=== PATIENT | female | born 1990 | race Native Hawaiian/Other Pacific Islander ===

== ENCOUNTER 2020-07-15 07:04 | Emergency (ER) | payer OTHER ==
--- NOTE | 2020-07-15 07:53 | Emergency Department Report ---
ED General Adult HPI - General Chief complaint: Neck Pain/Injury Stated complaint: THYROID PROBLEM Time Seen by Provider: 07/15/20 07:45 Source: patient Mode of arrival: Ambulatory Limitations: No Limitations - History of Present Illness Initial comments: This is a 29-year-old female she presents to the emergency room complaining of neck pain x2 weeks. She denies any falls or injuries she also complaining of her heart racing. Patient has a history of thyroid goiter x2 years on the right side. She also reports seeing POLYETHYLENE BAG MACHINE OPERATOR yesterday and it was confirmed that she is 4 weeks . She is 2 para 1. She denies any other past medical h istory she is currently not taking any meds. She denies cough fever chills chest pain or shortness of breath. She patient appears to be in no acute distress -: week(s) (2) Location: neck Severity scale (0 -10): 4 Quality: aching Consistency: constant Improves with: none Worsens with: none Associated Symptoms: other (Feeling anxious). denies: confusion, chest pain, loss of appetite, malaise, shortness of breath, syncope Treatments Prior to Arrival: none - Related Data Home Medications Medication Instructions Recorded Confirmed Last Taken No Known Home Medications [No 07/15/20 07/15/20 Unknown Reported Home Medications] Allergies Allergy/AdvReac Type Severity Reaction Status Date / Time No Known Allergies Allergy Unverified 07/15/20 07:35 ED Review of Systems ROS: Stated complaint: THYROID PROBLEM Other details as noted in HPI Comment: All other systems reviewed and negative Constitutional: denies: chills, fever, malaise ENT: denies: ear pain, throat pain, dental pain, hearing loss Respiratory: denies: cough, shortness of breath, SOB with exertion, wheezing Cardiovascular: other (Feels like her heart is racing). denies: chest pain, palpitations Endocrine: denies: excessive sweating, flushing, intolerance to cold, intolerance to heat, increased thirst Gastrointestinal: denies: abdominal pain, nausea, constipation, hematochezia Genitourinary: denies: dysuria, frequency, discharge Skin: denies: rash, change in color Neurological: denies: headache, weakness, numbness, paresthesias, confusion Psychiatric: denies: anxiety, depression, auditory hallucinations, visual hallucinations, homicidal thoughts ED Past Medical Hx - Past Medical History Previous Medical History?: Yes Additional medical history: Thyroid, Vaginal delivery - Surgical History Past Surgical History?: No - Social History Smoking Status: Never Smoker Substance Use Type: None - Medications Home Medications: Home Medications Medication Instructions Recorded Confirmed Last Taken Type No Known Home Medications [No 07/15/20 07/15/20 Unknown History Reported Home Medications] ED Physical Exam - General Limitations: No Limitations General appearance: alert, in no apparent distress - Head Head exam: Absent: atraumatic - Eye Eye exam: Absent: normal appearance - ENT ENT exam: Present: normal exam, mucous membranes moist - Neck Neck exam: Present: thyromegaly - Respiratory Respiratory exam: Present: normal lung sounds bilaterally. Absent: respiratory distress - Cardiovascular Cardiovascular Exam: Present: tachycardia, normal heart sounds - Extremities Exam Extremities exam: Present: normal inspection, normal capillary refill - Back Exam Back exam: Present: normal inspection - Neurological Exam Neurological exam: Present: alert, oriented X3 - Psychiatric Psychiatric exam: Present: normal affect - Skin Skin exam: Present: warm, dry, intact, normal color ED Course Vital Signs 07/15/20 07/15/20 07:37 10:38 Temperature 97.9 F 98.4 F Pulse Rate 118 H 88 Respiratory 20 20 Rate Blood Pressure 133/86 Blood Pressure 132/82 [Left] O2 Sat by Pulse 100 99 Oximetry - Reevaluation(s) Reevaluation #1: 07/15/20 10:24 Patient resting comfortably in no distress all findings discussed with her and outpatient follow-up with her PCP ED Medical Decision Making - Lab Data Result diagrams: 07/15/20 07:57 07/15/20 07:57 - Medical Decision Making This is a 29-year-old female with a history of a right thyroid goiter x2 years she came in this morning complaining of neck pain. She is which was confirmed by her PCP yesterday she has no complaints of abdominal pain no vaginal bleeding . She only reports right neck pain the area of the goiter she has no falls or injuries. Work-up completed her labs or within normal limits with the exception of a slightly elevated sodium of 134 her TSH and free T4 is it within normal limits her EKG is sinus rhythm rate of 95. I discussed [id number] with Dr. Ahn he agrees with discharge plan and follow-up outpatient with her primary care doctor. Critical care attestation.: If time is entered above; I have spent that time in minutes in the direct care of this critically ill patient, excluding procedure time. ED Disposition Clinical Impression: Neck pain, Thyromegaly Disposition: TO HOME OR SELFCARE Is pt being admited?: No Does the pt Need Aspirin: No Condition: Stable Instructions: Goiter Additional Instructions: Please follow-up with your primary care doctor in 3 to 5 days or sooner as needed there is okay for you to take Tylenol 1 to 2 tablets every 4-6 hours as needed for pain. Referrals: DIANNE WEBSTER MD [Primary Care Provider] - 3-5 Days VIMAL ANTON MD [Staff Physician] - 3-5 Days Time of Disposition: 10:25
[2020-07-15 09:23] LABS: Basophils % (Auto) 0.7 % (0.0-1.8); Eosinophils # (Auto) 0.1 K/mm3 (0.0-0.4); Eosinophils % (Auto) 1.5 % (0.0-4.3); Hematocrit 37.4 % (30.3-42.9); Hemoglobin 12.4 gm/dl (10.1-14.3); Lymphocytes % (Auto) 33.1 % (13.4-35.0); Mean Corpuscular HGB Conc 33 % (30-34); Mean Corpuscular Volume 87 fl (79-97); Monocytes # (Auto) 0.4 K/mm3 (0.0-0.8); Monocytes % (Auto) 6.5 % (0.0-7.3); Platelet Count 274 K/mm3 (140-440); Red Blood Count 4.31 M/mm3 (3.65-5.03); Red Cell Distribution Width 13.6 % (13.2-15.2)
[2020-07-15 09:45] LABS: Alanine Aminotransferase 15 units/L (7-56); Albumin 4.4 g/dL (3.9-5); Blood Urea Nitrogen 11 mg/dL (7-17); Calcium 9.3 mg/dL (8.4-10.2); Hemolysis Index 5
[2020-07-15 09:57] LABS: BUN/Creatinine Ratio 16
[2020-07-15 10:41] VITALS: BP 132/82
== END 2020-07-15 10:45 | disposition home or self-care (01) ==
LOC: ED 07:04
DX: E01.0 Iodine-deficiency related diffuse (endemic) goiter (principal); M54.2 Cervicalgia
CPT/HCPCS: 36415; 80053; 84439; 84443; 84703; 85025; 93005; 99283

== ENCOUNTER 2020-09-14 08:14 | Emergency (ER) | payer MEDICAID, OTHER ==
[2020-09-14 09:54] LABS: Basophils % (Auto) 0.4 % (0.0-1.8); Eosinophils # (Auto) 0.1 K/mm3 (0.0-0.4); Eosinophils % (Auto) 1.4 % (0.0-4.3); Hematocrit 31.9 % (30.3-42.9); Hemoglobin 10.9 gm/dl (10.1-14.3); Lymphocytes # (Auto) 1.6 K/mm3 (1.2-5.4); Lymphocytes % (Auto) 21.7 % (13.4-35.0); Mean Corpuscular HGB Conc 34 % (30-34); Mean Corpuscular Volume 85 fl (79-97); Monocytes # (Auto) 0.5 K/mm3 (0.0-0.8); Monocytes % (Auto) 7.3 % (0.0-7.3); Platelet Count 257 K/mm3 (140-440); Red Blood Count 3.74 M/mm3 (3.65-5.03); Red Cell Distribution Width 14.1 % (13.2-15.2)
[2020-09-14 10:06] LABS: Bilirubin,Urine NEG (Negative); Blood,Urine NEG (Negative); Color,Urine Straw (Yellow); Mucus,Urine FEW /HPF; Protein,Urine <15 mg/dL mg/dL (Negative); Urobilinogen,Urine < 2.0 mg/dL (<2.0)
[2020-09-14 10:13] LABS: Blood Urea Nitrogen 7 mg/dL (7-17); Calcium 9.1 mg/dL (8.4-10.2); Hemolysis Index 0
[2020-09-14 10:14] LABS: BUN/Creatinine Ratio 14
--- NOTE | 2020-09-14 10:32 | Emergency Department Report ---
ED General Adult HPI - General Chief complaint: Medical Clearance Stated complaint: BP LOW/16WKS Time Seen by Provider: 09/14/20 09:26 Source: patient Mode of arrival: Ambulatory Limitations: No Limitations - History of Present Illness Initial comments: 29-year-old female presents to the emergency room reporting she is 16 weeks and that her blood pressure was low at home around 90/50 she was laying down when she took her blood pressure. Patient states when she got up to go to the bathroom she started having some dizziness. Patient is currently taking vitamins and iron. She is followed by [facility] clinic. She is currently does not have a UI PROGRAMMER for her delivery. She denies any headache denies any nausea no vomiting but does admit to diarrhea. She denies any shortness of breath or chest discomfort. She denies any abdominal pain no vaginal bleeding no vaginal discharge. She is 2 para 1. She had a last delivery was a vaginal delivery. Severity scale (0 -10): 0 - Related Data Home Medications Medication Instructions Recorded Confirmed Last Taken No Known Home Medications [No 07/15/20 07/15/20 Unknown Reported Home Medications] Allergies Allergy/AdvReac Type Severity Reaction Status Date / Time No Known Allergies Allergy Verified 09/14/20 08:16 ED Review of Systems ROS: Stated complaint: BP LOW/16WKS Other details as noted in HPI ED Past Medical Hx - Past Medical History Additional medical history: Thyroid, Vaginal delivery - Surgical History Past Surgical History?: No - Social History Smoking Status: Never Smoker Substance Use Type: None - Medications Home Medications: Home Medications Medication Instructions Recorded Confirmed Last Taken Type No Known Home Medications [No 07/15/20 07/15/20 Unknown History Reported Home Medications] ED Physical Exam - General Limitations: No Limitations General appearance: alert, in no apparent distress - Head Head exam: Present: atraumatic, normocephalic - Eye Eye exam: Present: normal appearance - ENT ENT exam: Present: mucous membranes moist - Neck Neck exam: Present: normal inspection - Respiratory Respiratory exam: Present: normal lung sounds bilaterally. Absent: respiratory distress - Cardiovascular Cardiovascular Exam: Present: regular rate, normal rhythm. Absent: systolic murmur, diastolic murmur, rubs, gallop - GI/Abdominal GI/Abdominal exam: Present: soft, normal bowel sounds - Extremities Exam Extremities exam: Present: normal inspection - Back Exam Back exam: Present: normal inspection - Neurological Exam Neurological exam: Present: alert, oriented X3 - Expanded Neurological Exam Expanded Cranial nerves: EOM's Intact: Normal, Gag Reflex: Normal, Tongue Deviation: Normal, Nystagmus: Normal, Facial Sensation: Normal, Facial Palsy with Forehead Movement: Normal, Facial Palsy without Forehead Movement: Normal Cerebellar function: Finger to Nose: Normal, Heel to Lea: Normal, Romberg: Normal Upper motor neuron: Timmy Neglect: Normal, Pronator Drift: Normal, Babinski Sign: Normal, Sensory Extinction: Normal Sensory exam: Upper Extremity Light Touch: Normal, Upper Extremity Pin Prick: Normal, Upper Extremity Temperature: Normal, UE 2 Point Discrimination: Normal, Lower Extremity Light Touch: Normal, Lower Extremity Pin Prick: Normal, Lower Extremity Temperature: Normal, LE 2 Point Discrimination: Normal - Psychiatric Psychiatric exam: Present: normal affect, normal mood - Skin Skin exam: Present: warm, dry, intact, normal color. Absent: rash ED Course Vital Signs 09/14/20 09/14/20 09/14/20 08:16 09:41 09:52 Temperature 98 F Pulse Rate 100 H 87 Respiratory 20 19 14 Rate Blood Pressure 128/85 Blood Pressure 118/72 [Left] O2 Sat by Pulse 100 100 Oximetry 09/14/20 09/14/20 11:31 11:46 Temperature Pulse Rate 85 100 H Respiratory 16 18 Rate Blood Pressure Blood Pressure 106/69 98/57 [Left] O2 Sat by Pulse 100 100 Oximetry ED Medical Decision Making - Lab Data Result diagrams: 09/14/20 09:39 09/14/20 09:39 Lab Results 09/14/20 09/14/20 09/14/20 Range/Units 09:27 09:39 09:39 WBC 7.4 (4.5-11.0) K/mm3 RBC 3.74 (3.65-5.03) M/mm3 Hgb 10.9 (10.1-14.3) gm/dl Hct 31.9 (30.3-42.9) % MCV 85 (79-97) fl MCH 29 (28-32) pg MCHC 34 (30-34) % RDW 14.1 (13.2-15.2) % Plt Count 257 (140-440) K/mm3 Lymph % (Auto) 21.7 (13.4-35.0) % [place] % (Auto) 7.3 (0.0-7.3) % Eos % (Auto) 1.4 (0.0-4.3) % Baso % (Auto) 0.4 (0.0-1.8) % Lymph # (Auto) 1.6 (1.2-5.4) K/mm3 [place] # (Auto) 0.5 (0.0-0.8) K/mm3 Eos # (Auto) 0.1 (0.0-0.4) K/mm3 Baso # (Auto) 0.0 (0.0-0.1) K/mm3 Seg Neutrophils % 69.2 (40.0-70.0) % Seg Neutrophils # 5.1 (1.8-7.7) K/mm3 Sodium 134 L (137-145) mmol/L Potassium 4.2 (3.6-5.0) mmol/L Chloride 101.5 (98-107) mmol/L Carbon Dioxide 24 (22-30) mmol/L Anion Gap 13 mmol/L BUN 7 (7-17) mg/dL Creatinine 0.5 L (0.6-1.2) mg/dL Estimated GFR > 60 ml/min BUN/Creatinine Ratio 14 % Glucose 83 (65-100) mg/dL Calcium 9.1 (8.4-10.2) mg/dL TSH (0.270-4.200) mlU/mL Free T4 (0.76-1.46) ng/dL Urine Color Straw (Yellow) Urine Turbidity Clear (Clear) Urine pH 7.0 (5.0-7.0) Ur Specific [place] 1.009 (1.003-1.030) Urine Protein <15 mg/dl (Negative) mg/dL Urine Glucose (UA) Neg (Negative) mg/dL Urine Ketones Neg (Negative) mg/dL Urine Blood Neg (Negative) Urine Nitrite Neg (Negative) Urine Bilirubin Neg (Negative) Urine Urobilinogen < 2.0 (<2.0) mg/dL Ur Leukocyte Esterase Neg (Negative) Urine WBC (Auto) 1.0 (0.0-6.0) /HPF Urine RBC (Auto) 1.0 (0.0-6.0) /HPF U Epithel Cells (Auto) 1.0 (0-13.0) /HPF Urine Mucus Few /HPF 09/14/20 09/14/20 Range/Units 10:13 10:13 WBC (4.5-11.0) K/mm3 RBC (3.65-5.03) M/mm3 Hgb (10.1-14.3) gm/dl Hct (30.3-42.9) % MCV (79-97) fl MCH (28-32) pg MCHC (30-34) % RDW (13.2-15.2) % Plt Count (140-440) K/mm3 Lymph % (Auto) (13.4-35.0) % [place] % (Auto) (0.0-7.3) % Eos % (Auto) (0.0-4.3) % Baso % (Auto) (0.0-1.8) % Lymph # (Auto) (1.2-5.4) K/mm3 [place] # (Auto) (0.0-0.8) K/mm3 Eos # (Auto) (0.0-0.4) K/mm3 Baso # (Auto) (0.0-0.1) K/mm3 Seg Neutrophils % (40.0-70.0) % Seg Neutrophils # (1.8-7.7) K/mm3 Sodium (137-145) mmol/L Potassium (3.6-5.0) mmol/L Chloride (98-107) mmol/L Carbon Dioxide (22-30) mmol/L Anion Gap mmol/L BUN (7-17) mg/dL Creatinine (0.6-1.2) mg/dL Estimated GFR ml/min BUN/Creatinine Ratio % Glucose (65-100) mg/dL Calcium (8.4-10.2) mg/dL TSH 0.285 (0.270-4.200) mlU/mL Free T4 1.06 (0.76-1.46) ng/dL Urine Color (Yellow) Urine Turbidity (Clear) Urine pH (5.0-7.0) Ur Specific [place] (1.003-1.030) Urine Protein (Negative) mg/dL Urine Glucose (UA) (Negative) mg/dL Urine Ketones (Negative) mg/dL Urine Blood (Negative) Urine Nitrite (Negative) Urine Bilirubin (Negative) Urine Urobilinogen (<2.0) mg/dL Ur Leukocyte Esterase (Negative) Urine WBC (Auto) (0.0-6.0) /HPF Urine RBC (Auto) (0.0-6.0) /HPF U Epithel Cells (Auto) (0-13.0) /HPF Urine Mucus /HPF Critical care attestation.: If time is entered above; I have spent that time in minutes in the direct care of this critically ill patient, excluding procedure time. ED Disposition Clinical Impression: Physically well but worried Disposition: DC-01 TO HOME OR SELFCARE Is pt being admited?: No Does the pt Need Aspirin: No Condition: Stable Additional Instructions: All your labs are within normal limits. Vital signs are stable. I recommended she follow-up with her UI PROGRAMMER. Referrals: PRIMARY CARE, [Primary Care Provider] - 3-5 Days [facility] [Provider Group] - 3-5 Days [facility] [Provider Group] - 3-5 Days [facility] [Provider Group] - 3-5 Days Forms: Work/School Release Form(ED)
[2020-09-14 11:47] VITALS: BP 98/57
== END 2020-09-14 11:46 | disposition home or self-care (01) ==
LOC: ED 08:14
DX: O26.892 Other specified pregnancy related conditions, second trimester (principal); R42 Dizziness and giddiness; Z3A.16 16 weeks gestation of pregnancy; Z71.1 Person with feared health complaint in whom no diagnosis is made
CPT/HCPCS: 36415; 80048; 81001; 84439; 84443; 85025

== ENCOUNTER 2021-06-13 04:04 | Emergency (ER) | payer MEDICAID, OTHER ==
[2021-06-13] MEDS ORDERED: fentaNYL 100 MCG/2 ML INJ IV ONE (06:27)
[2021-06-13] MEDS ORDERED: ONDANSETRON 4 MG/2 ML INJ IV ONE (06:27)
--- NOTE | 2021-06-13 06:31 | Emergency Department Report ---
HPI - General Chief Complaint: Abdominal Pain Time Seen by Provider: 06/13/21 06:26 - [facility] HPI: MSE 3 The patient is a 30-year-old female present with a chief complaint of abdominal pain. Patient states her symptoms began 1 month ago with left lower quadrant abdominal pain that lasts approximately 15 minutes. She states the pain subsided but then returned 1 week later and has been gradually worsening. Patient states the pain is intermittent. Patient denies dysuria or hematuria. Patient denies fever. Patient denies nausea/vomiting. Patient currently gives her pain a score of 8/10. ED Past Medical Hx - Past Medical History Previous Medical History?: No - Surgical History Past Surgical History?: No - Family History Family history: no significant - Social History Smoking Status: Never Smoker Substance Use Type: None - Medications Home Medications: Home Medications Medication Instructions Recorded Confirmed Last Taken Type HYDROcodone/APAP 5-325 [[place] 1 - 2 each PO Q6HR PRN #10 tablet 06/13/21 Unknown Rx 5/325] metroNIDAZOLE [Flagyl] 500 mg PO Q12HR #14 tab 06/13/21 Unknown Rx ED Review of Systems ROS: Stated complaint: GENERAL PAIN Other details as noted in HPI Constitutional: denies: fever Eyes: denies: eye pain ENT: denies: throat pain Respiratory: no symptoms reported Cardiovascular: denies: chest pain Endocrine: no symptoms reported Gastrointestinal: abdominal pain. denies: nausea, vomiting Genitourinary: denies: dysuria, hematuria Musculoskeletal: back pain Neurological: denies: headache Physical Exam - Physical Exam Vital Signs: Vital Signs 06/13/21 04:32 Temperature 98.1 F Pulse Rate 88 Respiratory 17 Rate Blood Pressure 102/77 [Right] O2 Sat by Pulse 100 Oximetry Physical Exam: GENERAL: The patient is well-developed well-nourished female lying on stretcher not appearing to be in acute distress. [] HEENT: Normocephalic. Atraumatic. Extraocular motions are intact. Patient has moist mucous membranes. NECK: Supple. Trachea midline CHEST/LUNGS: Clear to auscultation. There is no respiratory distress noted. HEART/CARDIOVASCULAR: Regular. There is no tachycardia. There is no gallop rub or murmur. ABDOMEN: Abdomen is soft, with discomfort to palpation in the epigastric and left upper quadrant. There is no rebound or guarding. Patient has normal bowel sounds. There is no abdominal distention. SKIN: There is no rash. There is no edema. There is no diaphoresis. NEURO: The patient is awake, alert, and oriented. The patient is cooperative. The patient has no focal neurologic deficits. The patient has normal speech. GCS 15 MUSCULOSKELETAL: There is no CVA tenderness bilaterally. There is no evidence of acute injury. PELVIC: White discharge present, cervix appears irritated ED Course Vital Signs 06/13/21 04:32 Temperature 98.1 F Pulse Rate 88 Respiratory 17 Rate Blood Pressure 102/77 [Right] O2 Sat by Pulse 100 Oximetry ED Medical Decision Making - Lab Data Result diagrams: 06/13/21 07:00 06/13/21 07:00 Laboratory Tests 06/13/21 06/13/21 06/13/21 06:48 07:00 07:00 WBC 5.0 RBC 4.93 Hgb 12.0 Hct 39.1 MCV 79 MCH 24 L MCHC 31 RDW 15.8 H Plt Count 318 Lymph % (Auto) 37.6 H [place] % (Auto) 7.0 Eos % (Auto) 1.2 Baso % (Auto) 0.7 Lymph # (Auto) 1.9 [place] # (Auto) 0.3 Eos # (Auto) 0.1 Baso # (Auto) 0.0 Seg Neutrophils % 53.5 Seg Neutrophils # 2.7 Sodium 138 Potassium 4.4 Chloride 102.5 Carbon Dioxide 27 Anion Gap 13 BUN 12 Creatinine 0.7 Estimated GFR > 60 BUN/Creatinine Ratio 17 Glucose 94 Calcium 9.1 Total Bilirubin < 0.20 AST 15 ALT 17 Alkaline Phosphatase 81 Total Protein 7.4 Albumin 4.1 Albumin/Globulin Ratio 1.2 Lipase 25 HCG, Quant Urine Color Yellow Urine Turbidity Clear Urine pH 5.0 Ur Specific [place] 1.023 Urine Protein <15 mg/dl Urine Glucose (UA) Neg Urine Ketones Neg Urine Blood Sm Urine Nitrite Neg Urine Bilirubin Neg Urine Urobilinogen < 2.0 Ur Leukocyte Esterase Neg Urine WBC (Auto) 2.0 Urine RBC (Auto) 1.0 U Epithel Cells (Auto) 3.0 Urine Bacteria (Auto) 2+ Urine Mucus Few 06/13/21 07:00 WBC RBC Hgb Hct MCV MCH MCHC RDW Plt Count Lymph % (Auto) [place] % (Auto) Eos % (Auto) Baso % (Auto) Lymph # (Auto) [place] # (Auto) Eos # (Auto) Baso # (Auto) Seg Neutrophils % Seg Neutrophils # Sodium Potassium Chloride Carbon Dioxide Anion Gap BUN Creatinine Estimated GFR BUN/Creatinine Ratio Glucose Calcium Total Bilirubin AST ALT Alkaline Phosphatase Total Protein Albumin Albumin/Globulin Ratio Lipase HCG, Quant < 2 Urine Color Urine Turbidity Urine pH Ur Specific [place] Urine Protein Urine Glucose (UA) Urine Ketones Urine Blood Urine Nitrite Urine Bilirubin Urine Urobilinogen Ur Leukocyte Esterase Urine WBC (Auto) Urine RBC (Auto) U Epithel Cells (Auto) Urine Bacteria (Auto) Urine Mucus Discussed with micro tech-clue cells present on wet prep - Radiology Data Radiology results: report reviewed (CT abdomen pelvis), image reviewed (CT abdomen pelvis) [facility] [address] [place] [address] Cat Scan Report Signed Patient: ALLIE PARKINSON MR#: [id number] : 1990 Acct:[id number] Age/Sex: 30 / F ADM Date: 06/13/21 Loc: ED Attendi Dr: Ordering Physician: CARLA KRAFT MD Date of Service: 06/13/21 Procedure(s): CT abdomen pelvis w con Accession Number(s): [id number] cc: CARLA KRAFT MD CT ABDOMEN AND PELVIS WITH CONTRAST INDICATION / CLINICAL INFORMATION: Pt complains of LEFT flank / LEFT lower quadrant pain 100 ml omni 300 . T ECHNIQUE: Axial CT images were obtained through the abdomen and pelvis after 100 cc of Omnipaque [address] scans at this location are performed using CT dose reduction for ALARA by means of automated exposure control. COMPARISON: None available. FINDINGS: LOWER CHEST: No significant abnormality. LIVER: No significant abnormality. GALLBLADDER: No significant abnormality. BILE DUCTS: No significant abnormality. PANCREAS: No significant abnormality. SPLEEN: No significant abnormality. ADRENALS: No significant abnormality. RIGHT KIDNEY / URETER: No significant abnormality. LEFT KIDNEY / URETER: No significant abnormality. STOMACH / SMALL BOWEL: No significant abnormality. COLON: No significant abnormality. APPENDIX: No significant abnormality. PERITONEUM: No free fluid. No free air. No fluid collection. LYMPH NODES: No significant adenopathy. AORTA / ARTERIES: No significant abnormality. IVC / VEINS: No significant abnormality. URINARY BLADDER: No significant abnormality. REPRODUCTIVE ORGANS: There is prominence of the cervix. It potentially represent fibroid in the lower uterine segment. This could represent mass in the cervix. ADDITIONAL FINDINGS: None. SKELETAL SYSTEM: No significant abnormality. IMPRESSION: 1. There is no obstruction, inflammation, or free air. There are no abnormal fluid collections. There is no hydronephrosis. 2. There is prominence of the cervix. This could represent fibroid in the lower uterine segment. This could potentially represent cervical mass. Correlation with physical pelvic exam is recommended. Signer Name: Ankush Krause MD Signed: 06/13/2021 8:38 AM Workstation Name: [id number] Transcribed By: SS Dictated By: Ankush Krause MD Electronically Authenticated By: Ankush Krause MD Signed Date/Time: 06/13/21837 DD/ 1 TD/TT: Print Cancel - Differential Diagnosis Renal colic, diverticulitis, pyelonephritis, ovarian cyst, ectopic pregnanc Critical care attestation.: If time is entered above; I have spent that time in minutes in the direct care of this critically ill patient, excluding procedure time. ED Disposition Clinical Impression: Acute abdominal pain, Bacterial vaginosis Disposition: 01 HOME / SELF CARE / HOMELESS Is pt being admited?: No Does the pt Need Aspirin: No Condition: Stable Instructions: Abdominal Pain (ED), Bacterial Vaginosis (ED), Bacterial Vaginosis, [id number] Additional Instructions: Return to the emergency department should you develop worsening symptoms, inability to tolerate food or liquids, high fever or any other concerns Prescriptions: metroNIDAZOLE [Flagyl] 500 mg PO Q12HR #14 tab HYDROcodone/APAP 5-325 [[place] 5/325] 1 - 2 each PO Q6HR PRN #10 tablet PRN Reason: Pain Referrals: PRIMARY CARE,MD [Primary Care Provider] - 3-5 Days Your, [facility] [Other] - 3-5 Days Forms: STI Treatment and Prevention Time of Disposition: 11:55
[2021-06-13 07:14] LABS: Basophils % (Auto) 0.7 % (0.0-1.8); Eosinophils # (Auto) 0.1 K/mm3 (0.0-0.4); Eosinophils % (Auto) 1.2 % (0.0-4.3); Hematocrit 39.1 % (30.3-42.9); Lymphocytes # (Auto) 1.9 K/mm3 (1.2-5.4); Lymphocytes % (Auto) 37.6 % (13.4-35.0); Mean Corpuscular HGB Conc 31 % (30-34); Mean Corpuscular Volume 79 fl (79-97); Monocytes # (Auto) 0.3 K/mm3 (0.0-0.8); Platelet Count 318 K/mm3 (140-440); Red Blood Count 4.93 M/mm3 (3.65-5.03); Red Cell Distribution Width 15.8 % (13.2-15.2)
[2021-06-13 07:19] LABS: Bacteria,Urine 2+ /HPF (Negative); Bilirubin,Urine NEG (Negative); Blood,Urine SM (Negative); Color,Urine Yellow (Yellow); Mucus,Urine FEW /HPF; Protein,Urine <15 mg/dL mg/dL (Negative); Urobilinogen,Urine < 2.0 mg/dL (<2.0)
[2021-06-13 07:34] LABS: Alanine Aminotransferase 17 units/L (7-56); Albumin 4.1 g/dL (3.9-5); Blood Urea Nitrogen 12 mg/dL (7-17); Calcium 9.1 mg/dL (8.4-10.2); Hemolysis Index 4
[2021-06-13 07:53] LABS: BUN/Creatinine Ratio 17
--- NOTE | 2021-06-13 08:42 | Cat Scan Report ---
CT ABDOMEN AND PELVIS WITH CONTRAST INDICATION / CLINICAL INFORMATION: Pt complains of LEFT flank / LEFT lower quadrant pain 100 ml omni 300 . TECHNIQUE: Axial CT images were obtained through the abdomen and pelvis after 100 cc of Omnipaque [address] scans at this location are performed using CT dose reduction for ALARA by means of automated exposure control. COMPARISON: None available. FINDINGS: LOWER CHEST: No significant abnormality. LIVER: No significant abnormality. GALLBLADDER: No significant abnormality. BILE DUCTS: No significant abnormality. PANCREAS: No significant abnormality. SPLEEN: No significant abnormality. ADRENALS: No significant abnormality. RIGHT KIDNEY / URETER: No significant abnormality. LEFT KIDNEY / URETER: No significant abnormality. STOMACH / SMALL BOWEL: No significant abnormality. COLON: No significant abnormality. APPENDIX: No significant abnormality. PERITONEUM: No free fluid. No free air. No fluid collection. LYMPH NODES: No significant adenopathy. AORTA / ARTERIES: No significant abnormality. IVC / VEINS: No significant abnormality. URINARY BLADDER: No significant abnormality. REPRODUCTIVE ORGANS: There is prominence of the cervix. It potentially represent fibroid in the lower uterine segment. This could represent mass in the cervix. ADDITIONAL FINDINGS: None. SKELETAL SYSTEM: No significant abnormality. IMPRESSION: 1. There is no obstruction, inflammation, or free air. There are no abnormal fluid collections. There is no hydronephrosis. 2. There is prominence of the cervix. This could represent fibroid in the lower uterine segment. This could potentially represent cervical mass. Correlation with physical pelvic exam is recommended. Signer Name: Ankush Krause MD Signed: 06/13/2021 8:38 AM Workstation Name: [id number]
[2021-06-13 12:06] VITALS: BP 118/74
== END 2021-06-13 12:05 | disposition home or self-care (01) ==
LOC: ED 04:04
DX: N76.0 Acute vaginitis (principal); B96.89 Other specified bacterial agents as the cause of diseases classified elsewhere
CPT/HCPCS: 36415; 74177; 80053; 81001; 83690; 84702; 85025; 87591; 96374; 99284; J2405; J3010; Q9967